=== PATIENT | male | born 1975 | race Asian ===

== ENCOUNTER 2019-09-18 12:20 | Emergency (ER) | payer OTHER ==
[~2019-09-18] VITALS: Ht 165.1 cm; Wt 65.8 kg
--- NOTE | 2019-09-18 12:30 | NUR ---
patient came in to the er c/o "Chest pain started yesterday on/off not going away- was seen in [facility] refer here". On room air, breathing evenly and unlabored. connected to the monitor and pulse ox. kept comfortable, will continue to monitor accordingly.
[2019-09-18 12:54] LABS: BASOPHILS # (AUTO) 0.1 /CMM (0.0-0.2); BASOPHILS % (AUTO) 0.9 % (0.0-2.0); EOSINOPHILS % (AUTO) 1.7 % (0.0-6.0); HEMATOCRIT 49 % (39-51); HEMOGLOBIN 16.5 g/dL (13.5-17.5); LYMPHOCYTES # (AUTO) 1.4 /CMM (0.8-4.8); LYMPHOCYTES % (AUTO) 22.4 % (20.0-44.0); MEAN CORPUSCULAR HGB CONC 34 g/dl (31.0-36.0); MEAN CORPUSCULAR VOLUME 90 fL (80-96); MONOCYTES # (AUTO) 0.3 /CMM (0.1-1.30); MONOCYTES % (AUTO) 4.9 % (2.0-12.0); NEUTROPHILS # (AUTO) 4.3 /CMM (1.8-8.9); NEUTROPHILS % (AUTO) 70.1 % (43.0-81.0); PLATELET COUNT (AUTO) 210 /CMM (150-450); RED BLOOD CELL COUNT(AUTO) 5.48 MIL/uL (4.5-6.0); WHITE BLOOD COUNT (AUTO) 6.2 K/uL (4.3-11.0)
[2019-09-18 13:03] LABS: CALCIUM, SERUM 8.7 mg/dL (8.5-10.1); CARBON DIOXIDE 27 mmol/L (21-32); CHLORIDE 104 mmol/L (98-107); CREATININE 1.1 mg/dL (0.6-1.3); GLUCOSE 117 mg/dL (74-106); SODIUM SERUM 140 mmol/L (136-145); UREA NITROGEN, BLOOD 14 mg/dL (7-18)
[2019-09-18] MEDS ORDERED: ASPIRIN 81 MG TAB.CHEW ONE (13:26)
[2019-09-18] MEDS ORDERED: ASPIRIN EC 81 MG TABLET.DR PO ONE (13:30)
[2019-09-18 13:38] VITALS: BP 148/99
--- NOTE | 2019-09-18 13:38 | NUR ---
Patient discharged to home in stable condition. Written and verbal after care instructions given. Patient verbalizes understanding of instruction.IV removed. Catheter intact and site benign. Pressure and 4x4 applied to site. No bleeding noted.
[2019-09-30] MEDS ORDERED: ASPI-1169 PO (09:51)
[2019-09-30] MEDS ORDERED: ATOR40TA PO (09:51)
[2019-09-30] MEDS ORDERED: TICA90TA PO (09:51)
[2019-09-30] MEDS ORDERED: METO25TA4 PO (09:51)
== END 2019-09-18 13:38 | disposition home or self-care (01) ==
LOC: ER 12:28
DX: R07.89 Other chest pain (principal); I10 Essential (primary) hypertension; Z88.0 Allergy status to penicillin
CPT/HCPCS: 36415; 71045-TC; 80048-TC; 84484-TC; 85025-TC

== ENCOUNTER 2019-09-28 18:44 | Inpatient (IN) | payer OTHER ==
[~2019-09-28] VITALS: Ht 162.6 cm; Wt 75.3 kg
[2019-09-28 19:08] LABS: BASOPHILS % (AUTO) 0.5 % (0.0-2.0); EOSINOPHILS % (AUTO) 0.1 % (0.0-6.0); HEMATOCRIT 47 % (39-51); HEMOGLOBIN 15.9 g/dL (13.5-17.5); LYMPHOCYTES # (AUTO) 1.3 /CMM (0.8-4.8); LYMPHOCYTES % (AUTO) 15.1 % (20.0-44.0); MEAN CORPUSCULAR HGB CONC 34 g/dl (31.0-36.0); MEAN CORPUSCULAR VOLUME 90 fL (80-96); MONOCYTES # (AUTO) 0.5 /CMM (0.1-1.30); MONOCYTES % (AUTO) 5.8 % (2.0-12.0); NEUTROPHILS # (AUTO) 6.9 /CMM (1.8-8.9); NEUTROPHILS % (AUTO) 78.5 % (43.0-81.0); PLATELET COUNT (AUTO) 221 /CMM (150-450); RED BLOOD CELL COUNT(AUTO) 5.25 MIL/uL (4.5-6.0); WHITE BLOOD COUNT (AUTO) 8.7 K/uL (4.3-11.0)
--- NOTE | 2019-09-28 19:08 | NUR ---
BIBMOTHER FROM HOME TO ER BED 7. AAOX4. NOT IN RESP DISTRESS, BREATHING EVEN AND UNLABORED. AMBULATORY. CAME IN FOR C/O INTERMITENT MID LEFT CHEST PAIN RADIATING TO BACK AND L SHOULDER. PER PT, HE HAS BEEN HAVING THIS PAIN BACK SINCE SEPTEMBER 19. EVEN WENT TO THE ER. AT THE TIME OF ASSESSMENT, PT DENIES HAVING CHEST PAIN, DENIES SOB WELL. PT IS HOOKED ON MONITOR. EKG DONE. WAS AT THE BEDSIDE FOR EVAL.
[2019-09-28 19:17] LABS: CREATININE 1.2 mg/dL (0.6-1.3); POTASSIUM 3.7 mmol/L (3.5-5.1)
--- NOTE | 2019-09-28 19:27 | NUR ---
LAB CALLED REGARDING TROPONIN-14.03. ER MD MADE AWARE WITH ORDERS RECEIVED.
--- NOTE | 2019-09-28 19:31 | NUR ---
ER MD AT BEDSIDE TALKING TO PT AND PT FAMILY.
[2019-09-28] MEDS ORDERED: IV NS 0.9% 250 ML IV ONE (19:39)
[2019-09-28] MEDS ORDERED: IOHEXOL-350 100 ML VIAL IV ONE (19:39)
--- NOTE | 2019-09-28 19:44 | NUR ---
2ND IV LINE OBTAINED ON R AC 18G.
[2019-09-28 19:46] LABS: APPEARANCE,URINE Clear (CLEAR); BILIRUBIN,URINE Negative (NEGATIVE); BLOOD, URINE Negative Ery/uL (NEGATIVE); COLOR,URINE Yellow (YELLOW); KETONES,URINE 40 (NEGATIVE); LEUKOCYTE ESTERASE ,URINE Negative (NEGATIVE); NITRITE, URINE Negative (NEGATIVE); PROTEIN,URINE 30 mg/dl (NEGATIVE); UGLUCOSE Negative (NEGATIVE); UROBILINOGEN,URINE 0.2 EU/dL (0.2)
--- NOTE | 2019-09-28 19:49 | NUR ---
CALLED [facility], PAGED FOLDER AND NOTCHER DR BURGOS
[2019-09-28] MEDS ORDERED: ASPIRIN EC 325 MG TABLET.DR PO ONE (19:57)
--- NOTE | 2019-09-28 19:57 | NUR ---
PT TO CT ON SHANT[place]
[2019-09-28] MEDS ORDERED: ASPIRIN 81 MG TAB.CHEW PO ONE (20:00)
--- NOTE | 2019-09-28 20:49 | NUR ---
REANNA POPE TALKING TO MAHNAZ CEDENO NP REGARDING PT ADMISSION.
[2019-09-28] MEDS ORDERED: DOCUSATE SODIUM 100 MG CAPSULE PO PRN (21:00)
[2019-09-28] MEDS ORDERED: ACETAMINOPHEN 325 MG TABLET PO PRN (21:00)
[2019-09-28] MEDS ORDERED: MORPHINE SULFATE INJ 2 MG/ML DISP.SYRIN IV PRN (21:00)
[2019-09-28] MEDS ORDERED: ONDANSETRON HCL/PF 4 MG/2 ML VIAL IVP PRN (21:00)
[2019-09-28] MEDS ORDERED: MAG HYDROX/AL HYDROX/SIMETH 30 ML UDC PO PRN (21:00)
[2019-09-28] MEDS ORDERED: ENOXAPARIN SODIUM 80 MG/0.8 ML DISP.SYRIN SQ ONE (21:00)
[2019-09-28] MEDS ORDERED: NITROGLYCERIN 0.4 MG/TAB BOTTLE SL PRN (21:00)
[2019-09-28] MEDS ORDERED: ENOXAPARIN SODIUM 40 MG/0.4 ML DISP.SYRIN SQ ONE (21:04)
[2019-09-28] MEDS ORDERED: ENOXAPARIN SODIUM 30 MG/0.3 ML DISP.SYRIN ONE (21:04)
--- NOTE | 2019-09-28 21:58 | NUR ---
PLEASE CALL PT'S MOTHER, MY, WITH UPDATES. PHONE NUMBER IS: [phone]
[2019-09-28] MEDS ORDERED: SIMVASTATIN 20 MG TABLET PO SCH ×2 (22:00)
--- NOTE | 2019-09-28 22:00 | NUR ---
CONSULTANT TECHNOLOGY: RECEIVED PT FROM ED VIA WHEEL CHAIR. A/O X3 BUT WT SUSPECTED DEVELOPMENTAL DELAY PT KEPT ASKING "DOES IT HURT?" RE CARDIAC CATH IN AM & KEPT ASKING IF HE CAN BE TAKEN VIA WHEEL CHAIR. ON R/A WT NO ACUTE DISTRESS, NO C/O CHEST PAIN AT THIS TIME. SR ON TELE MONITOR. AFEBRILE. COOPERATIVE. BILAT. AC IV SITES INTACT WT NO S/S OF INFILTRATION. HOB AT 45 DEGREES. BED IN LOWEST POSITION AND LOCKED, SIDE RAILS UP X3, CALL LIGHT KEPT WITHIN REACH. WILL CONTINUE TO MONITOR.
--- NOTE | 2019-09-28 22:05 | NUR ---
pt transported to unit on wheelchair as per pt request with emt and rn at bedside usinf acls protocol. nad durinf transport. pt ambulated from wheelcahir to bed on steady gait w/o assist
[2019-09-28] MEDS: METOPROLOL SUCCINATE 25 MG TAB.SR.24H PO SCH (22:28)
[2019-09-28 22:33] VITALS: BP 154/94
[2019-09-28 23:00] VITALS: BP 154/94
[2019-09-29] VITALS (28 sets, daily range): BP systolic 99–148; BP diastolic 46–89
[2019-09-29 04:50] LABS: BASOPHILS % (AUTO) 0.3 % (0.0-2.0); EOSINOPHILS % (AUTO) 0.3 % (0.0-6.0); HEMATOCRIT 45 % (39-51); HEMOGLOBIN 15.1 g/dL (13.5-17.5); LYMPHOCYTES # (AUTO) 1.6 /CMM (0.8-4.8); LYMPHOCYTES % (AUTO) 14.6 % (20.0-44.0); MEAN CORPUSCULAR HGB CONC 34 g/dl (31.0-36.0); MEAN CORPUSCULAR VOLUME 90 fL (80-96); MONOCYTES # (AUTO) 0.7 /CMM (0.1-1.30); MONOCYTES % (AUTO) 6.6 % (2.0-12.0); NEUTROPHILS # (AUTO) 8.5 /CMM (1.8-8.9); NEUTROPHILS % (AUTO) 78.2 % (43.0-81.0); PLATELET COUNT (AUTO) 210 /CMM (150-450); RED BLOOD CELL COUNT(AUTO) 4.97 MIL/uL (4.5-6.0); WHITE BLOOD COUNT (AUTO) 10.8 K/uL (4.3-11.0)
[2019-09-29 05:04] LABS: THYROID STIMULATING HORMONE 2.173 uIU/mL (0.358-3.74)
[2019-09-29 05:05] LABS: ALBUMIN 3.8 g/dL (3.4-5.0); BILIRUBIN,TOTAL 1.5 mg/dL (0.2-1.0); CALCIUM, SERUM 8.7 mg/dL (8.5-10.1); MAGNESIUM 2.1 mg/dL (1.8-2.4); POTASSIUM 3.4 mmol/L (3.5-5.1); TOTAL PROTEIN, SERUM 7.2 g/dL (6.4-8.2)
[2019-09-29] MEDS ORDERED: IODIXANOL 150 ML IV ONE ×2 (06:13→07:58)
[2019-09-29] MEDS ORDERED: HEPARIN SODIUM, PORCINE 1,000 UNIT/ML VIAL ONE (06:27)
[2019-09-29] MEDS ORDERED: VERAPAMIL HCL IV 5 MG/2 ML VIAL ONE (06:27)
[2019-09-29] MEDS ORDERED: NITROGLYCERIN ICAR 1,000 MCG/10 ML VIAL ICAR ONE (06:27)
[2019-09-29] MEDS ORDERED: LIDOCAINE HCL/PF 1% 30 ML SDV ONE (06:27)
[2019-09-29] MEDS ORDERED: IV NS 0.9% 50 ML IV ONE (06:30)
[2019-09-29] MEDS ORDERED: IV NS 0.9% 1,000 ML ONE ×2 (06:30→07:58)
--- NOTE | 2019-09-29 06:57 | NUR ---
DESIGN ASSEMBLER: PT PICKED UP BY 2 RNs FOR CARDIAC CATH. IN STABLE CONDITION. NO ACUTE DISTRESS. NO CHEST PAIN THROUGHOUT THE SHIFT.
[2019-09-29] MEDS ORDERED: MIDAZOLAM HCL 2 MG/2ML VIAL ONE (07:23)
[2019-09-29] MEDS ORDERED: FENTANYL PF 100MCG/2ML AMPUL ONE (07:23)
[2019-09-29] MEDS ORDERED: BIVALIRUDIN 250 MG/VIAL IV ONE ×3 (07:44→08:28)
[2019-09-29] MEDS ORDERED: TICAGRELOR 90 MG TABLET PO ONE (07:48)
[2019-09-29] MEDS ORDERED: ASPIRIN 325 MG TABLET ONE (07:48)
[2019-09-29] MEDS ORDERED: IODIXANOL 320MG/ML 50 ML IV ONE (07:51)
--- NOTE | 2019-09-29 08:50 | NUR ---
SIZING SPONGER RECEIVED PT FROM FLIGHT INSPECTOR. REPORT RECEIVED. TR BAND INTACT OVER RIGHT RADIAL ARTERY. ANGIOMAX INFUSING PER IV SITE IN LEFT ANTECUBITAL. PT AWAKE AND ALERT. SPEECH CLEAR. MOVING ALL EXTREMITIES. DENIES CHEST PAIN
[2019-09-29] MEDS ORDERED: ENOXAPARIN SODIUM 80 MG/0.8 ML DISP.SYRIN SQ SCH (09:00)
[2019-09-29] MEDS ORDERED: ENOXAPARIN SODIUM 60 MG/0.6 ML DISP.SYRIN SQ SCH (09:00)
[2019-09-29] MEDS ORDERED: ASPIRIN EC 325 MG TABLET.DR PO SCH (09:00)
[2019-09-29] MEDS: POTASSIUM CL. PREMIX PERIPHER. 50 ML IV SCH ×2 (10:54→12:46)
[2019-09-29] MEDS ORDERED: BIVALIRUDIN IV ONE (11:00)
[2019-09-29] MEDS ORDERED: NS 0.9% IV ONE (11:00)
[2019-09-29] MEDS ORDERED: IV NS 0.9% 1,000 ML IV ONE (11:00)
--- NOTE | 2019-09-29 18:41 | NUR ---
ICU/RN Pt was received from Edmundo MORGAN at around 1100, S/P angioplasty with stent placement on distal RCA. R radial TR band intact. ANGIOMAX DONE AT 1200, Started deflating the TR band at 1400 as ordered. By the time 6 cc of air was withdrawn, puncture site started oozing with small amounts of blood but not pulsating. Placed the air back and waited longer for about 30 mins again but was still oozing, this attempt was done multiples times until about 1755 and was still oozing with blood. Dr. Davidson was notified, sent him a video as requested, when 3 cc of air was deflated again. Dr. Davidson stated that it looks okay, continue to try to deflate tonight and pad with gauze around the site. Pt denies any pain or any discomfort all day today. Finished about 25% of his meals today. Will report to mine shifter.
--- NOTE | 2019-09-29 19:30 | NUR ---
TR band noted @ right wrist(still inflated with 9 ml. air as endorsed by lane MORGAN),noted some blood stain at sight but not actively bleeding at this time.Will slowly deflate as instructed.
--- NOTE | 2019-09-29 19:30 | NUR ---
RN NOTE RECEIVED PT A/OX4, IN BED RESTING COMFORTABLY. PATIENT IN NO S/SX OF ACUTE DISTRESS AT THIS TIME. NO SOB NOTED. PATIENT'S BREATHING IS EVEN AND UNLABORED. PATIENT ON CULTURED [employer] MAKER READING SR, HR IS @76. NOTED IV SITE ON RIGHT AND LEFT AC, GAUGE 18; PATENT AND FLUSHING WELL,NO S/S OF INFECTION OR INFILTRATION. SAFETY MEASURES IMPLEMENTED PER PROTOCOL. PATIENT BED ALARM IS ON. HEAD OF BED ELEVATED. BED IS LOCKED IN LOWEST POSITION AND SIDE RAILS UPX2. CALL LIGHT WITHIN REACH OF THE PATIENT. WILL CONTINUE TO MONITOR AND REASSESS FOR ANY CHANGE IN CONDITION.
--- NOTE | 2019-09-29 20:00 | NUR ---
TR band deflated by 3 ml. ,no bleeding noted,will closely monitor site.Instructed patient not to move or bend right wrist .
--- NOTE | 2019-09-29 20:30 | NUR ---
TR band deflated by 3 ml. ,will closely monitor bor any s/s of acute bleeding.
--- NOTE | 2019-09-29 21:00 | NUR ---
Deflated TR band ,no more bleeding noted.TR band removed,gentle pressure applied ,pressure dressing applied.
[2019-09-29] MEDS: TICAGRELOR 90 MG TABLET PO SCH (21:40)
[2019-09-29] MEDS: METOPROLOL SUCCINATE 25 MG TAB.SR.24H PO SCH (21:44)
[2019-09-29] MEDS ORDERED: ATORVASTATIN 40 MG TABLET PO SCH (22:00)
[2019-09-30] VITALS (13 sets, daily range): BP systolic 100–137; BP diastolic 61–77
--- NOTE | 2019-09-30 00:17 | NUR ---
RN NOTE PATIENT REMAINS IN STABLE CONDITION. ENDORSED TO ROXY MORGAN FOR CONTINUATION OF CARE
--- NOTE | 2019-09-30 00:20 | NUR ---
Re[poprt given to Olinda MORGAN.Patient remains stable,right wrist (TR band site) with no bleeding noted, pulses +.
--- NOTE | 2019-09-30 00:45 | NUR ---
ICU/RN PATIENT IN BED WITH NO SIGN OF ANY DISTRESS. PATIENT IS ALERT X3 WITH NO COMPLAINTS OF ANY SOB. ON ROOM AIR SATURATING AT 98%. IV LINES LINES INTACT AND RT WRIST WHERE TBAND WAS RECENTLY SHOWS NO SIGNS OF ANY BLEEDING. PATIENT IS AWARE AND CONFIRMS THAT HE UNDERSTANDS TO TRY AND AVOID EXTREME MOVEMENT. ALL SAFETY PRECAUTIONS APPLIED. WILL CONTINUE TO MONITOR PATIENT.
[2019-09-30 04:05] LABS: BASOPHILS % (AUTO) 0.6 % (0.0-2.0); EOSINOPHILS % (AUTO) 1.1 % (0.0-6.0); HEMATOCRIT 44 % (39-51); HEMOGLOBIN 14.5 g/dL (13.5-17.5); LYMPHOCYTES # (AUTO) 1.6 /CMM (0.8-4.8); LYMPHOCYTES % (AUTO) 18.2 % (20.0-44.0); MEAN CORPUSCULAR HGB CONC 33 g/dl (31.0-36.0); MEAN CORPUSCULAR VOLUME 90 fL (80-96); MONOCYTES # (AUTO) 0.8 /CMM (0.1-1.30); MONOCYTES % (AUTO) 8.7 % (2.0-12.0); NEUTROPHILS # (AUTO) 6.2 /CMM (1.8-8.9); NEUTROPHILS % (AUTO) 71.4 % (43.0-81.0); PLATELET COUNT (AUTO) 214 /CMM (150-450); RED BLOOD CELL COUNT(AUTO) 4.84 MIL/uL (4.5-6.0); WHITE BLOOD COUNT (AUTO) 8.7 K/uL (4.3-11.0)
[2019-09-30 04:17] LABS: ALBUMIN 3.3 g/dL (3.4-5.0); BILIRUBIN,TOTAL 2.1 mg/dL (0.2-1.0); CALCIUM, SERUM 8.2 mg/dL (8.5-10.1); MAGNESIUM 2.2 mg/dL (1.8-2.4); PHOSPHORUS 3.3 mg/dL (2.5-4.9); POTASSIUM 3.6 mmol/L (3.5-5.1); TOTAL PROTEIN, SERUM 6.4 g/dL (6.4-8.2)
--- NOTE | 2019-09-30 08:00 | NUR ---
ICU/RN INITIAL NOTES,AM RECEIVED REPORT FROM NIGHT NURSE. PT ALERT, AWAKE, FOLLOWS COMMANDS. ON ROOM AIR, NO ACUTE DISTRESS NOTES. SINUS ON TELE. PT S/P PCI YESTERDAY, SITE ASSESSED, NO ACUTE S/S OF BLEEDING NOTED, WILL CONTINUE TO MONITOR. ALL NEEDS ATTENDED TO, SAFETY MEASURES TAKEN, BED IN LOW POSITION, SIDE RAILS UP, CALL LIGHT WITHIN REACH. POSSIBLE D/C THIS AM.
[2019-09-30] MEDS: TICAGRELOR 90 MG TABLET PO SCH (08:45)
[2019-09-30] MEDS ORDERED: ASPIRIN 81 MG TAB.CHEW PO SCH (09:00)
[2019-09-30] MEDS ORDERED: ASPI-1169 PO (09:51)
[2019-09-30] MEDS ORDERED: TICA90TA PO (09:51)
[2019-09-30] MEDS ORDERED: METO25TA4 PO (09:51)
[2019-09-30] MEDS ORDERED: ATOR40TA PO (09:51)
--- NOTE | 2019-09-30 12:20 | NUR ---
ICU/RN: DISCHARGE PAPERWORK DONE. EXIT CARE DONE. PIVS REMOVED, NO S/S OF BLEEDING NOTED. RIGHT RADIAL S/P CATH ASSESSED, NO HEMATOMA, NO S/S OF BLEEDING NOTED. PRESCRIPTION REVIEWED. ALL BELONGINGS SENT WITH PT, FORM SIGNED. MOTHER OF PT CALLED, INFORMED REGARDING PT CONDITION AND IMPORTANCE OF MEDICATIONS. PT ESCORTED OUT TO VEHICLE VIA WHEELCHAIR.
== END 2019-09-30 13:00 | disposition home or self-care (01) | DRG 247 ==
LOC: ER 18:48 → ICU 20:55
PROVIDERS: ADMIT Registered Nurse; ATTEND Internal Medicine
PROC: 4A023N7 Measurement of Cardiac Sampling and Pressure, Left Heart, Percutaneous Approach (ICD-10-PCS; principal; 2019-09-29)
PROC: 027034Z Dilation of Coronary Artery, One Artery with Drug-eluting Intraluminal Device, Percutaneous Approach (ICD-10-PCS; principal; 2019-09-29)
PROC: B211YZZ Fluoroscopy of Multiple Coronary Arteries using Other Contrast (ICD-10-PCS; principal; 2019-09-29)
DX: I21.A1 Myocardial infarction type 2 (principal); R17 Unspecified jaundice; R62.50 Unspecified lack of expected normal physiological development in childhood; I25.10 Atherosclerotic heart disease of native coronary artery without angina pectoris; I10 Essential (primary) hypertension; E87.6 Hypokalemia; R74.0 Nonspecific elevation of levels of transaminase and lactic acid dehydrogenase [LDH]
CPT/HCPCS: 36415; 80048-TC; 80053-TC; 80061-TC; 81000-TC; 83735-TC; 84100-TC; 84443-TC; 84484-TC; 85025-TC; 85378-TC; 85610-TC; 85730-TC; 87081-TC; 92980; 92982; 93307-TC; A4216; C1725; C1887; G0378; G0500; J1644; J1650; J2250; J3010; J3480; J3490; J7040; J7050; Q9967